=== PATIENT | female | born 1990 ===

== ENCOUNTER 2016-11-18 10:10 | Emergency (ER) | payer OTHER ==
--- NOTE | 2016-11-18 12:49 | UC ---
Respiratory Complaint HPI - HPI Summary HPI Summary: 26 female presents with complaints of productive cough, chest congestion/ pressure, SOB on exertion and subjective fever/chills that has improved since wednesday. Symptoms began like cold symptoms 1.5 week ago however worsened over the past weekend. She thought she was feeling better Wednesday however symptoms returned yesterday and today. Patient has been taking Mucinex with some relief. She feels as though all of the congestion in upper respiratory tract moved its way down into her chest. Denies PMHx. Admits to sore throat, ear pain and nasal congestion as well. Was around sick contact last week. - History of Current Complaint Chief Complaint: UCRespiratory Stated Complaint: RESP COMPLAINT Time Seen by Provider: 11/18/16 11:12 Hx Obtained From: Patient Hx Last Menstrual Period: IUD ?: No Onset/Duration: Sudden Onset, Lasting Weeks - 1.5, Still Present, Worse Since Timing: Constant Severity Initially: Moderate Severity Currently: Moderate Pain Intensity: 5 Pain Scale Used: 0-10 Numeric Character: Cough: Productive - yellow/green "chunky" Aggravating Factors: Allergens, Exertion Alleviating Factors: OTC Meds - mucinex Associated Signs And Symptoms: Positive: Dyspnea, Fever, Chills, URI, Nasal Congestion. Negative: Wheezing, Hemoptysis, Calf Pain, Calf Swelling - Risk Factors Pulmonary Embolism Risk Factors: Recent Travel - to [place] and home over weekend - Allergies/Home Medications Allergies/Adverse Reactions: Allergies Allergy/AdvReac Type Severity Reaction Status Date / Time Amoxicillin Allergy Hives Verified 11/18/16 10:35 Sulfa Antibiotics Allergy Hives Verified 11/18/16 10:35 Home Medications: Home Medications ALPRAZolam TAB* [Xanax TAB*] 0.112 mg PO PRN 11/18/16 [History] Sertraline* [Zoloft*] 25 mg PO DAILY 11/18/16 [History Confirmed 11/18/16] PMH/Surg Hx/FS Hx/Imm Hx - Additional Past Medical History Additional PMH: none. denies DM, HTN and asthma - Surgical History Surgical History: Yes Surgery Procedure, Year, and Place: CYST REMOVED FROM ARM, BACK-5YRS, WISDOM TEETH, - Family History Known Family History: Positive: None - Social History Alcohol Use: Occasionally Substance Use Type: None Smoking Status (MU): Light Every Day Tobacco Smoker Type: Cigarettes - Immunization History Most Recent Influenza Vaccination: unknown Vaccination Up to Date: Yes Review of Systems Constitutional: Fever, Chills, Fatigue Skin: Negative Eyes: Negative ENT: Sore Throat, Ear Ache, Nasal Discharge Respiratory: Shortness Of Breath, Cough Cardiovascular: Chest Pain - with coughing Gastrointestinal: Diarrhea - one episode yesterday 11/17/16 Motor: Negative Musculoskeletal: Negative Neurological: Negative All Other Systems Reviewed And Are Negative: Yes Physical Exam Triage Information Reviewed: Yes Appearance: Well-Appearing, No Pain Distress, Well-Nourished Vital Signs: Initial Vital Signs Temp 99.5 F 11/18/16 10:37 Pulse 97 11/18/16 10:37 Resp 16 11/18/16 10:37 BP 140/85 11/18/16 10:37 Pulse Ox 99 11/18/16 10:37 elevated pressure, re-taken prior to d/c and was in normal range 134/76. low grade fever noted. Vital Signs Reviewed: Yes Eyes: Positive: Conjunctiva Clear ENT: Positive: Normal ENT inspection, Hearing grossly normal, Pharyngeal erythema, Nasal congestion - erythema/inflammation, TMs normal. Negative: Nasal drainage, Tonsillar swelling, Tonsillar exudate Dental: Negative: Percussion Tenderness @, Cervical Lymphadenopathy Neck: Positive: Supple, Nontender, No Lymphadenopathy Respiratory: Positive: Chest non-tender, Lungs clear, Normal breath sounds, No respiratory distress, No accessory muscle use, Decreased breath sounds - lower lung landin, may be due to patient's way of taking deep breaths. Negative: Crackles, Rhonchi, Stridor, Wheezing Cardiovascular: Positive: RRR, No Murmur, Pulses Normal Abdomen Description: Positive: Nontender, Soft Bowel Sounds: Positive: Present Musculoskeletal Exam: Normal Musculoskeletal: Positive: Strength Intact, ROM Intact Neurological: Positive: Alert Skin Exam: Normal UC Diagnostic Evaluation - Laboratory O2 Sat by Pulse Oximetry: 99 - Radiology Xray Interpretation: No Acute Changes - NO ACTIVE CARDIOPULMONARY DISEASE. Radiology Interpretation Completed By: Radiologist Respiratory Course/Dx - Course Course Of Treatment: not currently in any pain. chest x-ray obtained and negative for pneumonia. will be given a zpack and albuterol inhaler. flonase and recommended xyzal over the counter. Ibuprofen for pain and fever. fluids, rest. Aware of worsening signs and symptoms to watch out for. Follow up PCP. - Differential Dx/Diagnosis Differential Diagnosis/HQI/PQRI: Asthma, Bronchitis, Influenza, Lower Resp Infection, Sinusitis, Other Provider Diagnoses: Bronchitis Discharge - Discharge Plan Condition: Stable Disposition: HOME Prescriptions: Albuterol HFA INHALER* [Ventolin HFA Inhaler*] 1 puff INH Q4H PRN #1 mdi PRN Reason: Sob/Wheezing Azithromycin TAB* [Zithromax TAB (Z-RIGO) 250 mg #6 tabs] 2 tab PO .TODAY, THEN 1 DAILY #1 rigo Fluticasone NASAL SPRAY 50MCG* [Flonase NASAL SPRAY 50MCG*] 2 spray BOTH NARES DAILY #1 btl Patient Education Materials: Acute Bronchitis (ED) Referrals: Radha Ibarra MD [Primary Care Provider] - Additional Instructions: Take prescribed medication as directed until all doses are finished. Flonase nasal spray for nasal congestion. Use inhaler 3-4 times daily for the next 3-5 days while symptoms persist. Also recommend taking Xyzal antihistamine over the counter. ibuprofen for aches and fever. Drink plenty of fluids and get plenty of rest. Follow up with PCP. If symptoms worsen or do not improve please return or seek medical attention.
[2016-11-18 13:05] VITALS: BP 134/76
--- NOTE | 2016-11-18 13:17 | RAD ---
HISTORY: Decreased breath sounds, shortness of breath COMPARISONS: None VIEWS: 2: Frontal dual-energy and lateral views of the chest. FINDINGS: CARDIOMEDIASTINAL SILHOUETTE: The cardiomediastinal silhouette is normal. QUYEN: The quyen are normal. PLEURA: The costophrenic angles are sharp. No pleural abnormalities are noted. LUNG PARENCHYMA: The lungs are clear. ABDOMEN: The upper abdomen is clear. There is no subphrenic gas. BONES AND SOFT TISSUES: No bone or soft tissue abnormalities are noted. OTHER: None. IMPRESSION: NO ACTIVE CARDIOPULMONARY DISEASE.
== END 2016-11-18 13:29 | disposition home or self-care (01) ==
LOC: UCEAST 10:10
DX: J40 Bronchitis, not specified as acute or chronic (principal); Z88.3 Allergy status to other anti-infective agents; F17.210 Nicotine dependence, cigarettes, uncomplicated
CPT/HCPCS: 71020; 99212; G0463